=== PATIENT | female | born 1980 | race African-American/Black ===

== ENCOUNTER 2017-05-06 01:30 | Inpatient (IN) | payer OTHER ==
[2017-05-06 02:15] VITALS: BMI 39.4
[2017-05-06] MEDS ORDERED: Ondansetron HCl/PF 4 MG/2 ML Vial IVP PRN ×4 (02:31→21:19)
[2017-05-06] MEDS ORDERED: Acetaminophen 500 MG TAB PO PRN (02:31)
[2017-05-06] MEDS ORDERED: Carboprost 250 MCG/ML AMP IM PRN (02:31)
[2017-05-06] MEDS ORDERED: Promethazine HCl 25 MG/ML VIAL IM PRN ×2 (02:31→10:00)
[2017-05-06] MEDS ORDERED: Ibuprofen 800 MG TAB PO PRN (02:31)
[2017-05-06] MEDS ORDERED: HYDROcodone/Acetaminophen 5/325 mg Tablet PO PRN ×2 (02:31)
[2017-05-06] MEDS ORDERED: LR / Pitocin 40 units/1000 ml 1,000 ML IV PRN (02:31)
[2017-05-06] MEDS ORDERED: Lidocaine 1% (PF) 30 ML VIAL SC PRN (02:31)
[2017-05-06] MEDS ORDERED: Misoprostol 200 MCG TAB PR PRN (02:31)
[2017-05-06] MEDS ORDERED: Diphenoxylate HCl/Atropine Tablet PO PRN ×2 (02:31)
[2017-05-06] MEDS ORDERED: Penicillin G Potassium 5 MILL.UNITS in Sodium Chloride 0.9% 100 ML IVPB SCH (02:45)
[2017-05-06] MEDS ORDERED: LR 500 ML/Oxytocin 10 units 500 ML IV SCH (02:45)
[2017-05-06] MEDS: Lactated Ringer's 1,000 ML IV SCH ×3 (02:47→14:02)
[2017-05-06 02:59] LABS: Hematocrit 35.9 % (36.0-47.0); Mean Platelet Volume 9.7 fL (7.4-10.4); Red Blood Cell (RBC) Count 4.75 mill/uL (4.20-5.40); White Blood Cell (WBC) Count 10.9 thou/uL (4.8-10.8)
--- NOTE | 2017-05-06 04:57 | PDOC.LDHP ---
Labor and Delivery H&P Chief complaint: loss of fluid HPI: 36 y/o presents with LOF and ctx becoming more painful and frequent. Denies VB or decreased FM. Denies any other complaints. Patient of Dr. Deluca. ROS neg for HEENT, CV, pulm, GI, , neuro, psych, skin, musculoskeletal, or constitutional symptoms other than mentioned above OB History Details: 1 prior LTCS for CHD, otherwise all SVDs Current complications: none Past Medical History: None Current medications: pre-alan vitamins Previous surgical history: low tranverse CS Allergies/Adverse Reactions: Allergies Allergy/AdvReac Type Severity Reaction Status Date / Time No Known Allergies Allergy Verified 06/17/13 18:42 Social history: none - Physical Exam Vital signs reviewed and normal: yes General: NAD, resting Lungs: nonlabored breathing Abdomen: gravid Extremeties: no edema FHT: category 1 (135, mod variability, + accels, no decels) [place] contractions every: 3-6 mins - Vaginal Exam cm dilated: 1 Effacement: 50% Station: -3 - OB Labs Blood type: O RH: positive HIV: negative RPR: negative HEPSAg: negative 1 hour GCT: negative GBS: positive - Assessment L&D Assessment: term rupture in membranes - Plan Plan: admit to L&D, labor augmentation if indicated, GBS antibiotic prophylaxis , informed consent obtained, anesthesia consult for pain management -: Dr. Deluca unavailable and defers care to hospitalist team.
[2017-05-06] MEDS ORDERED: Penicillin G 2.5 MILL.units 2.5 MILL.UNITS in Premix Bag 1 BAG IVPB SCH (05:00)
[2017-05-06] MEDS: Penicillin G 2.5 MILL.units 2.5 MILL.UNITS in Premix Bag 1 BAG IVPB SCH ×4 (07:38→22:33)
[2017-05-06] MEDS ORDERED: Fentanyl 4 mcg/Marc 0.1% Cadd 100 ML ONE (09:25)
[2017-05-06] MEDS ORDERED: Fentanyl 4mcg/Marcaine 0.1% Cassette 100 ML EPIDURAL SCH (10:00)
[2017-05-06] MEDS ORDERED: ePHEDrine/0.9% NaCl/PF SYRINGE 50 mg/10 ml SLOW IVP PRN (10:00)
[2017-05-06] MEDS ORDERED: Naloxone HCl 0.4 mg/ml Vial IVP PRN ×2 (10:00)
[2017-05-06] MEDS ORDERED: Lactated Ringer's 500 ML IV PRN (10:00)
[2017-05-06] MEDS ORDERED: diphenhydrAMINE HCl 50 MG/ML 1 ML VIAL IVP PRN (10:00)
[2017-05-06] MEDS ORDERED: Eucerin (Mineral Oil/Petrolatum,White) 30 gm Jar TOP PRN (10:00)
[2017-05-06] MEDS ORDERED: Acetaminophen 325 MG TAB PO PRN (10:00)
[2017-05-06] MEDS ORDERED: Communication Order-Pharmacy FS SCH (10:00)
[2017-05-06] MEDS ORDERED: Bicitra 30 ML UDCUP ONE (14:04)
[2017-05-06] MEDS ORDERED: Bicitra 30 ML UDCUP PO SCH (14:45)
[2017-05-06] MEDS ORDERED: Misoprostol 200 MCG TAB ONE (16:40)
[2017-05-06] MEDS ORDERED: Milk Of Magnesia 30 ML UDCUP PO PRN (20:27)
[2017-05-06] MEDS ORDERED: Lanolin Ointment 7 GM TUBE TOP PRN ×2 (20:27→21:18)
[2017-05-06] MEDS ORDERED: LR / Pitocin 40 units/1000 ml 1,000 ML IV SCH (20:27)
[2017-05-06] MEDS ORDERED: diphenhydrAMINE HCl 25 MG CAP PO PRN ×2 (20:27→21:19)
[2017-05-06] MEDS ORDERED: Bisacodyl 10 MG SUPP PR PRN (20:27)
[2017-05-06] MEDS ORDERED: Docusate (Surfak) 240 MG CAP PO SCH (21:00)
[2017-05-06] MEDS: Docusate (Surfak) 240 MG CAP PO SCH (21:29)
[2017-05-06] MEDS ORDERED: Ibuprofen 800 MG TAB PO SCH (22:00)
--- NOTE | 2017-05-06 23:03 | OP ---
DATE OF ENCOUNTER: 05/06/2017 OB DELIVERY NOTE The patient delivered a male on 05/06/2017, at 1638 hours by an uncomplicated term spontaneou s vaginal delivery at 39 weeks' gestation. Apgars are 9 and 9. Weight is 3891 grams. Placenta del ivered spontaneously followed by Pitocin infusion. There were no lacerations. Estimated blood loss was [address] Leija is the delivering physician. Mother and baby are stable in the delivery r oom in the immediate . Counts were correct.
[2017-05-07] MEDS: Ibuprofen 800 MG TAB PO SCH ×3 (05:02→21:53)
[2017-05-07 05:21] LABS: Hematocrit 32.6 % (36.0-47.0); Mean Platelet Volume 9.9 fL (7.4-10.4); Red Blood Cell (RBC) Count 4.25 mill/uL (4.20-5.40); White Blood Cell (WBC) Count 15.3 thou/uL (4.8-10.8)
[2017-05-07] MEDS: Docusate (Surfak) 240 MG CAP PO SCH ×2 (07:48→21:54)
[2017-05-07] MEDS: Ferrous Sulfate 325 MG TAB PO SCH ×2 (09:46→13:21)
--- NOTE | 2017-05-07 11:43 | PRG ---
DATE OF SERVICE: 05/07/2017 SUBJECTIVE: The patient is a 36-year-old female who is now day 1, status post a successf ul vaginal after at term. She reports today that she is tolerating p.o., voiding on her own, having decreased lochia and good pain control. PHYSICAL EXAMINATION: VITAL SIGNS: Today, blood pressure is 129/76, temperature 98.2, pulse of 81, respiratory rate of 20 . GENERAL: She appears to be in no acute distress. She is alert and oriented, cooperative and pleasa nt to interact with. HEAD: Normocephalic, atraumatic. ABDOMEN: Soft and obese. Fundus is firm. EXTREMITIES: Nontender with minimal symmetrical edema. ASSESSMENT AND PLAN: The patient is day 1, status post a vaginal after archer. She was GBS positive. We will anticipate discharge tomorrow morning as nursery observes th e baby for another day.
[2017-05-08] MEDS: Ibuprofen 800 MG TAB PO SCH (05:46)
[2017-05-08] MEDS ORDERED: Ibuprofen 800 MG TAB PO SCH (06:00)
[2017-05-08 06:14] LABS: ALT (SGPT) 15 U/L (8-55); AST (SGOT) 15 U/L (5-34); Alkaline Phosphatase 119 U/L (40-150); Anion Gap 12 mmol/L (10-20); BUN (Urea Nitrogen) 7 mg/dL (7.0-18.7); Bilirubin, Total 0.2 mg/dL (0.2-1.2); Calc. Creatinine Clearance 195 mL/min (70-130); Calcium 8.4 mg/dL (7.8-10.44); Carbon Dioxide 23 mmol/L (22-29); Chloride 108 mmol/L (98-107); Estimated GFR-MDRD Greater than 90; Globulin 3.1 g/dL (2.4-3.5); Protein, Total 5.7 g/dL (6.0-8.3)
--- NOTE | 2017-05-08 07:16 | DIS ---
DATE OF ADMISSION: 05/06/[address] Geena Gaviria. DATE OF DISCHARGE: 05/08/2017 PRINCIPAL PROCEDURE: Vaginal after section. She does have a history of prior low transverse with subsequent spontaneous vaginal delive ry. She was admitted by Dr. Geena Gaviria on 05/06/2017. For full details, please turn to that dic tation. The patient progressed to a vaginal delivery with Dr. Leija with the patient delivering o n 05/06/2017 at 1638. Apgars were 9 and 9. The patient did well in her course. However , blood pressure elevations were noted beginning on 05/07/2017 at 11:40. This was day #1 . Blood pressures were 141/91. She had a 1 time high value of 166/100 on 05/07/2017 at 19:47. I e valuated the patient on the morning of 05/08/2017 and found her blood pressure to be 144/92. There were no symptoms of preeclampsia. I did order a complete metabolic profile on the morning of 2016 which returned normal. ALT and AST were normal at 15 and creatinine was normal at 0.77. Her C BC from 05/07/2017 was also normal with platelets of 230. Hematocrit value was 32. As there were n o signs or symptoms of preeclampsia, and as the patient was thought to be anxious due to desire to g o home, we made a plan to discharge her home with a blood pressure evaluation in 48 hours. There wa s no evidence of metritis or heavy bleeding on exam. The diagnosis was made of transient hypertension with no evidence of preeclampsia and as they were non-severe, we will follow her up in 48 hours. DISCHARGE MEDICATIONS: Motrin for pain. Discharge instructions were given and information on high blood pressure provided.
[2017-05-08 08:08] VITALS: BP 144/93; TEMP 98.5
[2017-05-08] MEDS: Docusate (Surfak) 240 MG CAP PO SCH (08:26)
[2017-05-08] MEDS: Ferrous Sulfate 325 MG TAB PO SCH (08:26)
[2017-05-08] MEDS ORDERED: Adacel (T-DAP) 0.5 ML VIAL IM ONE (09:00)
== END 2017-05-08 14:40 | disposition home or self-care (01) | DRG 774 ==
LOC: L&D/OP 01:30 → L&D 02:44 → 3SW 19:52
PROVIDERS: ADMIT Obstetrics & Gynecology; ATTEND Obstetrics & Gynecology
PROC: 10E0XZZ Delivery of Products of Conception, External Approach (ICD-10-PCS; principal; 2017-05-06)
DX: O34.211 Maternal care for low transverse scar from previous cesarean delivery (principal); O13.5 Gestational [pregnancy-induced] hypertension without significant proteinuria, complicating the puerperium; O99.824 Streptococcus B carrier state complicating childbirth; Z3A.39 39 weeks gestation of pregnancy; Z37.0 Single live birth
CPT/HCPCS: 36415; 76815; 80053; 85027; 86780; 86850; 86900; 86901; 86922; 87340; J0595; J2001; J2540; J7050; J7120

== ENCOUNTER 2017-12-30 11:32 | Outpatient (CLI) | payer OTHER | END 2017-12-30 11:33 | disposition home or self-care (01) | LOC: BICRAD 11:32 | PROVIDERS: ATTEND Internal Medicine | DX: Z02.71 Encounter for disability determination (principal); M43.9 Deforming dorsopathy, unspecified | CPT/HCPCS: 72040 ==